=== PATIENT | female | born 1980 | race Two or more races ===

== ENCOUNTER → 2021-08-29 | Emergency (ER) | payer OTHER ==
[~2021-08-29] VITALS: Ht 167.6 cm; Wt 81.6 kg
[~2021-08-29] MED LIST: LEVOTHYROXINE25 MCG PO
== END | disposition left against medical advice (07) ==
LOC: ER 17:32
DX: O20.8 Other hemorrhage in early pregnancy (principal); Z3A.01 Less than 8 weeks gestation of pregnancy; Z88.0 Allergy status to penicillin